=== PATIENT | male | born 1945 ===

== ENCOUNTER 2017-08-19 21:12 | Emergency (ER) | payer MEDICARE, MEDICAID ==
[2017-08-19 21:34] VITALS: TEMP 99.1
--- NOTE | 2017-08-19 22:39 | C.PDOC ---
History Of Present Illness Patient was sent in from retirement for a complaint of multiple episodes of diarrhea and low blood pressure. Patient denies fever, chills, nausea, or vomiting. Patient has a Hx of right hemiplegia. Time Seen by Provider: 08/19/17 22:39 Chief Complaint (Nursing): Medical Clearance History Per: Patient History/Exam Limitations: no limitations Onset/Duration Of Symptoms: Hrs Current Symptoms Are (Timing): Still Present Severity: None Past Medical History Reviewed: Historical Data, Nursing Documentation, Vital Signs Vital Signs: Last Vital Signs Temp 99.1 F 08/19/17 21:23 Pulse 61 08/20/17 00:30 Resp 14 08/20/17 00:30 BP 94/58 L 08/20/17 00:30 Pulse Ox 99 08/20/17 04:46 - Medical History Other PMH: Right hemiplegia Surgical History: No Surg Hx Family History: States: No Known Family Hx - Social History Hx Alcohol Use: No Hx Substance Use: No - Immunization History Hx Tetanus Toxoid Vaccination: No Hx Influenza Vaccination: No Hx Pneumococcal Vaccination: No Review Of Systems Constitutional: Negative for: Fever, Chills Cardiovascular: Negative for: Chest Pain Respiratory: Negative for: Shortness of Breath Gastrointestinal: Positive for: Diarrhea. Negative for: Nausea, Vomiting Genitourinary: Negative for: Dysuria Skin: Negative for: Rash Neurological: Negative for: Altered Mental Status, Headache Psych: Negative for: Anxiety Physical Exam - Physical Exam Appears: Non-toxic, Other (Awake, Alert) Skin: Warm, Dry Head: Normacephalic Eye(s): bilateral: Normal Inspection Oral Mucosa: Moist Neck: Supple Chest: Symmetrical Cardiovascular: Rhythm Regular Respiratory: No Rales, No Rhonchi, No Wheezing Gastrointestinal/Abdominal: Soft, No Tenderness Back: No CVA Tenderness Extremity: Other (right hemiplegia) Pulses: Left Carotid: Normal, Right Carotid: Normal, Left Radial: Normal, Right Radial: Normal, Left Dorsalis Pedis: Normal, Right Dorsalis Pedis: Normal Neurological/Psych: Oriented x3, Normal Speech, Other (Right hemiplegia) Gait: Unable To Assess ED Course And Treatment - Laboratory Results Result Diagrams: 08/19/17 22:53 08/19/17 22:53 ECG: Interpreted By Me, Viewed By Me O2 Sat by Pulse Oximetry: 99 (Room air) Pulse Ox Interpretation: Normal - Radiology CXR: Interpreted by Me, Viewed By Me CXR Interpretation: Yes: Cardiomegaly. No: Infiltrates, Fracture Progress Note: Blood work, EKG, CXR, and urinalysis ordered. Pepcid and IV fluids administered. pt stable. no diarrhea. pt states he wants to go back to the retirement. Vitals stable Disposition Counseled Patient/Family Regarding: Studies Performed, Diagnosis, Need For Followup - Disposition Referrals: Natali Strong MD [Staff Provider] - Disposition: HOME/ ROUTINE Disposition Time: 22:39 Condition: FAIR Instructions: Acute Diarrhea (ED) Forms: [facility] (Romanian) - Clinical Impression Clinical Impression: Medical assessment, Diarrhea - Scribe Statement The provider has reviewed the documentation as recorded by the Scribe Justo Avila All medical record entries made by the Scribe were at my direction and personally dictated by me. I have reviewed the chart and agree that the record accurately reflects my personal performance of the history, physical exam, medical decision making, and the department course for this patient. I have also personally directed, reviewed, and agree with the discharge instructions and disposition.
[2017-08-19] MEDS ORDERED: Sodium Chloride 0.9% 1,000 ML IV ONE (22:42)
[2017-08-19 22:55] LABS: EOS # 0.3 K/uL (0.0-0.7); MONO # 0.4 K/uL (0.0-0.8); RED CELL DISTRIBUTION WIDTH 14.3 % (11.5-14.5)
[2017-08-19 23:04] LABS: CHLORIDE 100 mmol/L (98-107)
[2017-08-19 23:05] LABS: POTASSIUM 4.5 mmol/L (3.6-5.2); SODIUM 132 mmol/L (132-148)
[2017-08-19 23:07] LABS: ALKALINE PHOSPHATASE 58 U/L (38-126); ALT/SGPT 24 U/L (21-72); AST/SGOT 21 U/L (17-59); BASO % 0.6 % (0.0-2.0); BILIRUBIN,TOTAL 0.6 mg/dL (0.2-1.3); BLOOD UREA NITROGEN 21 mg/dL (9-20); CARBON DIOXIDE 21 mmol/L (22-30); EOS % 4.3 % (0.0-4.0); GFR AFRICAN-AMERICAN > 60; GLUCOSE,RANDOM 73 mg/dL (75-110); HEMATOCRIT 38.2 % (35.0-51.0); LYMPH # 0.7 K/uL (1.0-4.3); LYMPH % 12.3 % (20.0-40.0); MEAN CORPUSCULAR HEMOGLOBIN 31.3 pg (27.0-31.0); MEAN CORPUSCULAR HGB CONC 34.4 g/dL (33.0-37.0); MEAN PLATELET VOLUME 9.5 fL (7.2-11.7); MONO % 6.2 % (0.0-10.0); NRBC % 0.2 % (0.0-2.0)
[2017-08-19 23:08] LABS: CALCIUM 8.7 mg/dl (8.6-10.4)
[2017-08-19 23:34] LABS: RBC URINE 3 /hpf (0-3); URINE BACTERIA OCC (<OCC); URINE COLOR YELLOW (YELLOW); WBC URINE 35 /hpf (0-5)
[2017-08-19 23:35] LABS: URINE BILIRUBIN SMALL (NEGATIVE); URINE BLOOD NEGATIVE (NEGATIVE); URINE GLUCOSE (UA) NEGATIVE (Normal); URINE KETONE TRACE mg/dL (NEGATIVE); URINE LEUKOCYTE ESTERASE MODERATE Leu/uL (Negative); URINE PROTEIN NEGATIVE (NEGATIVE); URINE UROBILINOGEN 0.2 mg/dL (0.2-1.0)
[2017-08-20 00:49] VITALS: RESP 14
[2017-08-20 06:05] VITALS: BP 99/62; PULSE 65; O2SAT 100
--- NOTE | 2017-08-20 08:38 | RAD ---
PROCEDURE: CHEST RADIOGRAPH, 1 VIEW HISTORY: abd pain COMPARISON: None available. FINDINGS: LUNGS: No definite infiltrate is appreciate bilaterally appear PLEURA: No pneumothorax or pleural fluid seen. CARDIOVASCULAR: Cardiac silhouette appears normal size. No pulmonary vascular derangement. Substernal thyroid gland is questioned versus great vessel ectasis of managing the density of tissue surrounding the trachea. OSSEOUS STRUCTURES: No significant abnormalities. VISUALIZED UPPER ABDOMEN: Normal. OTHER FINDINGS: None. IMPRESSION: No acute infiltrate or pleural effusion bilaterally. Prominent peritracheal soft tissues may reflect great vessel ectasis or substernal thyroid gland.
== END 2017-08-20 06:08 | disposition home or self-care (01) ==
LOC: C.ER 21:12
DX: R19.7 Diarrhea, unspecified (principal)
CPT/HCPCS: 71010; 80053; 81001; 83690; 85025; 96361; 96374; 99285; J7040